=== PATIENT | male | born 1995 | race African-American/Black ===

== ENCOUNTER 2016-11-19 20:36 | Emergency (ER) | payer OTHER ==
[~2016-11-19] VITALS: Ht 180.3 cm; Wt 69.2 kg
[2016-11-19 20:38] VITALS: Ht 180.3 cm; Wt 69.2 kg
--- NOTE | 2016-11-19 20:57 | ERPDOC ---
Departure Disposition Decision Date: November 19, 2016 Disposition Decision Time: 22:43 Disposition: 01 DISCHARGED HOME, SELF-CARE Impression Impression Impression: Primary Impression: Viral gastroenteritis Additional Impression: Dehydration Severity: Moderate Condition: Improved Seen By: Physician only Patient Instructions: Gastroenteritis (ED) Problems/Meds/Labs Reviewed?: Yes Medications reviewed and manag: Yes Additional Instructions: Take Compazine 10 mg one tablet 3 times daily for the next 2 days, then as needed for nausea or abdominal cramps Drink 2-3 quarts of fluid daily for the next 3 days, then returned here normal intake Return to ER or see your normal physician/referral physician as needed if symptoms do not improve Follow up care ordered?: Yes Mental Status: Alert Scripts Prochlorperazine Maleate (Compazine) 10 Mg Tablet 10 MG PO QID, #30 TAB 0 Refills Prov: MARIANGEL MARKHAM MD 11/19/16 HPI - Abdominal Pain General Chief Complaint: Nausea,Vomiting,Diarrhea Stated Complaint: VOMITING Time Seen by Provider: 20:42 Source: patient History/Exam Limitations: no limitations HPI - Abdominal Pain Initial Comments Patient reports 10-12 days of persistent periodic daily vomiting with epigastric pain, generalized cramping, and diarrhea that was present initially but has now resolved. Patient also notes a feeling of fevers and chills several times each day. Patient has not tried any medications, he has tried diet modification, avoiding fatty foods, but has noticed that even when he avoids fried or fatty foods, he persistently vomits up any heavy proteins, or milk products. Patient has no severe past medical history, is an athlete at the local college, and specifically denies any recreational drugs. Patient does have mild asthma controlled with Singulair alone. Occurred At: home Onset: Rapid Quality: cramping Location: epigastric Radiation: chest Activities at Onset: none Modifying Factors: WORSE WITH: eating Associated Symptoms: nausea/vomiting, DENIES: back pain, chest pain, diaphoresis, fatigue, fever/chills, headache, heartburn, rash, shortness of breath, swelling/mass in abdomen, syncope, weakness Hx of Similar Symptoms: No Allergies: Coded Allergies: No Known Allergies (Unverified , 11/19/16) Past History Past Medical History Respiratory: asthma Surgical History Denies Surgeries Social History Smoking Status: Never smoker Does patient use chewing tobac: No Second Hand Exposure: No Substance Use Type: does not use Alcohol Intake: none Record Review Pertinent history updated: Yes Review of Systems Constitutional Constitutional: chills, fatigue, fever, DENIES: appetite decrease, appetite increase, dizziness, weakness ENMT Ears: DENIES: pain Hearing: DENIES: hearing loss, tinnitus Balance: DENIES: vertigo Mouth/Throat: DENIES: change in swallowing, change in voice, hoarsness, painful swallowing, sore throat Cardiovascular Cardiac: DENIES: chest pain, dyspnea on exertion Rhythm/Rate: DENIES: irregular beat, palpitations, tachycardia Vascular: DENIES: pedal edema Pulmonary Respiratory: DENIES: cough, dyspnea, pleuritic chest pain GI Upper Abdomen: nausea, pain, vomiting, DENIES: dysphagia, food intolerances, heartburn/indigestion, hematemesis Lower Abdomen: diarrhea, DENIES: blood in stool, job-colored stools, constipation, melena, pain, painful BM General: DENIES: burning, dysuria, frequency, pain, urgency Musculoskeletal General: DENIES: cramps, joint pain, joint swelling, pain, weakness Integumentary Skin: DENIES: rash, sores Neurological General: headache Psychiatric Psychiatric: DENIES: anxiety, depression, nervousness Physical Exam General General Nourishment: well nourished, well developed, appears stated age, no acute distress, thin General Body Habitus: well groomed Vitals and Pain First Documented Vital Signs Date Time Temp Pulse Resp B/P Pulse Ox O2 Delivery O2 Flow Rate FiO2 11/19/16 20:38 97.8 63 16 127/73 98 Room Air Weight: Kilograms: 69.200 Height (feet): 5 Height (inches): 11.00 Triage Pain Scale: RN VS reviewed by Provider: Yes Normal Exams: Head: Normocephalic w/o trauma Eyes: Pupils are PERRLA w/ EOMI, No scleral icterus, irritation, or foreign bodies noted ENMT: No facial trauma, nasal exudates, pharyngeal erythema, or exudates are noted Neck: Full range of motion, without adenopathy, JVD, bruits or thyromegaly Chest/Resp: Clear all price, with good airflow, and symmetry bilaterally CV: Regular rate and rhythm, without murmur or gallop, Pulses 2+ all extremities, capillary refill, <2 seconds all ext., no pedal edema noted Lymphatic: No lymphadenopathy, or lymphedema noted Musculoskeletal: No tenderness, or deformity noted, good range of motion, all extremities Integumentary: No rashes, hives, or bruising noted, hair and nails, without abnormality Neurologic: Patient is alert, and oriented, cranial nerves, motor/sensory/ cerebellar, exams w/o gross deficits, to observation Psychiatric: Patient exhibits, appropriate attention, emotion and affect Abdomen (brief) Abdominal Brief: FOUND: bowel normo active x4, soft, tender (minimal epigastric tenderness), NOT FOUND: distended, hepatosplenomegaly, pulsatile mass Progress Results/Orders Orders Procedure Category Date Status Time Iv Lock (Ed Only) EDM 11/19/16 Transmitted 20:47 Cbc W/Auto LAB 11/19/16 Complete Diff-Reflex Manual Cmp - Comprehensive LAB 11/19/16 Complete Metabolic Lipase LAB 11/19/16 Complete Ketorolac (Toradol) PHA 11/19/16 Complete 21:00 Normal Saline (Normal PHA 11/19/16 Complete Saline Iv) 21:00 Prochlorperazine PHA 11/19/16 Complete (Compazine) 21:00 Lab Results Laboratory Tests Test 11/19/16 20:58 White Blood Count 7.0T/MM3 Red Blood Count 4.78M/MM3 Hemoglobin 12.9GM/DL Hematocrit 40.2% Mean Corpuscular Volume 84.1UM3 Mean Corpuscular Hemoglobin 27.0UUG Mean Corpuscular Hemoglobin Concent 32.1GM/DL RDW Standard Deviation 39.3FL Platelet Count 274T/MM3 Mean Platelet Volume 10.4UM3 Immature Granulocyte % (Auto) 0.1% Neutrophils (%) (Auto) 48.5% Lymphocytes (%) (Auto) 34.8% Monocytes (%) (Auto) 12.1% Eosinophils (%) (Auto) 3.8% Basophils (%) (Auto) 0.7% Absolute Immature Granulocyte (auto 0.01T/MM3 Absolute Neutrophils (auto) 3.4T/MM3 Absolute Lymphocytes (auto) 2.5T/MM3 Absolute Monocytes (auto) 0.9T/MM3 Absolute Eosinophils (auto) 0.3T/MM3 Absolute Basophils (auto) 0.1T/MM3 Turbidity < 20 Sodium Level 141MEQ/L Potassium Level 4.1MEQ/L Chloride Level 100MEQ/L Carbon Dioxide Level 29MEQ/L Anion Gap 12MEQ/L Blood Urea Nitrogen 14.0MG/DL Creatinine 1.3MG/DL Glomerular Filtration Rate Calc 70 BUN/Creatinine Ratio 11RATIO Glucose Level 91MG/DL Calculated Osmolality 272MOSM/KG Calcium Level 9.5MG/DL Total Bilirubin 0.70MG/DL Icterus Index < 2 Aspartate Amino Transf (AST/SGOT) 21U/L Alanine Aminotransferase (ALT/SGPT) 36U/L Alkaline Phosphatase 78U/L Total Protein 7.6G/DL Albumin 4.4G/DL Globulin 3.2G/DL Albumin/Globulin Ratio 1.4RATIO Lipase 57U/L Chemistry Specimen Hemolysis < 15 Medications Current ED Medications Ondansetron HCl (Zofran) 4 mg O ONCE IV ; Start 11/19/16 at 21:00; Stop 11/19/16 at 21:01; Status Cancel Ketorolac Tromethamine 30 mg 30 mg O ONCE IV Last administered on 11/19/16 21: 07; Start 11/19/16 at 21:00; Stop 11/19/16 at 21:01; Status DC Sodium Chloride (Normal Saline IV) 1,000 ml @ 0 mls/hr Q0M ONCE IV Last administered on 11/19/16 21:06; Start 11/19/16 at 21:00; Stop 11/19/16 at 21:01; Status DC Prochlorperazine Edisylate (Compazine) 10 mg O ONCE IV Last administered on 21:08; Start 11/19/16 at 21:00; Stop 11/19/16 at 21:01; Status DC Progress Progress Patient given Toradol, Compazine, 1 L normal saline IV fluid bolus - To significant relief. Patient did have a slight feeling of dizziness after Compazine, but this resolved CBC - n CMP/L - n UA - n MARIANGEL MARKHAM MD November 19, 2016 20:57
[2016-11-19] MEDS ORDERED: PROCHLORPERAZINE 10mg/2ml INJECTION IV ONE (21:00)
[2016-11-19] MEDS ORDERED: KETOROLAC 30mg/ml INJECTION IV ONE (21:00)
[2016-11-19] MEDS ORDERED: ONDANSETRON 4mg/2ml INJECTION IV ONE (21:00)
[2016-11-19] MEDS ORDERED: NORMAL SALINE 1,000 ML IV ONE (21:00)
[2016-11-19] MEDS ORDERED: MONT10TA22 PO (21:15)
[2016-11-19 21:21] LABS: ALBUMIN 4.4 G/DL (3.5-5.0); ALBUMIN/GLOBULIN RATIO 1.4 RATIO (1.1-2.2); ALKALINE PHOSPHATASE 78 U/L (38-126); ALT (SGPT) 36 U/L (21-72); ANION GAP 12 MEQ/L (5-15); AST (SGOT) 21 U/L (17-59); BUN/CREATININE RATIO 11 RATIO (6-26); CALCIUM 9.5 MG/DL (8.4-10.2); CHLORIDE 100 MEQ/L (98-107); CO2 - CARBON DIOXIDE 29 MEQ/L (22-30); CREATININE 1.3 MG/DL (0.8-1.5); GLOMERULAR FILTRATION RATE 70; GLUCOSE 91 MG/DL (75-110); POTASSIUM 4.1 MEQ/L (3.6-5); SODIUM 141 MEQ/L (134-144); TOTAL PROTEIN 7.6 G/DL (6.3-8.2)
[2016-11-19 21:26] LABS: BASOPHILS # (AUTO) 0.1 T/MM3 (0-0.2); BASOPHILS % (AUTO) 0.7 % (0-2); EOSINOPHILS # (AUTO) 0.3 T/MM3 (0-0.5); EOSINOPHILS % (AUTO) 3.8 % (0-4); HCT - HEMATOCRIT 40.2 % (41-53); HGB - HEMOGLOBIN 12.9 GM/DL (13.5-17.5); IMMATURE GRANULOCYTE # (AUTO) 0.01 T/MM3 (0.00-0.03); IMMATURE GRANULOCYTE % (AUTO) 0.1 % (0.0-0.5); LYMPHOCYTES # (AUTO) 2.5 T/MM3 (1-4.8); LYMPHOCYTES % (AUTO) 34.8 % (23-45); MEAN CORPUSCULAR HGB CONC(MCHC 32.1 GM/DL (31-37); MEAN CORPUSCULAR VOLUME 84.1 UM3 (80-100); MEAN PLATELET VOLUME 10.4 UM3 (9.4-12.4); MONOCYTES # (AUTO) 0.9 T/MM3 (0-0.8); MONOCYTES % (AUTO) 12.1 % (0-9.0); NEUTROPHILS #(AUTO)-ABSOLUTE 3.4 T/MM3 (1.8-7.7); NEUTROPHILS % (AUTO) 48.5 % (33-66); RED BLOOD COUNT 4.78 M/MM3 (4.50-5.90)
[2016-11-19 21:40] LABS: LIPASE 57 U/L (23-300)
--- NOTE | 2016-11-19 21:59 | NUR ---
STATUS PATIENT STATED THAT HE WAS FEELING DIZZY JUST LYING IN BED. NOTIFIED DR MARKHAM. GAVE PATIENT WARM BLANKER PER REQUEST.
[2016-11-19] MEDS ORDERED: PROC-14 PO (22:44)
[2016-11-19] MEDS ORDERED: PROCHLORPERAZINE 10MG (PrePack) SENT HOME ONE (22:45)
[2016-11-19 23:00] VITALS: BP 126/88; PULSE 82; RESP 16; TEMP 97.8; O2SAT 99
== END 2016-11-19 23:00 | disposition home or self-care (01) ==
LOC: ED 20:36
DX: A08.4 Viral intestinal infection, unspecified (principal); E86.0 Dehydration
CPT/HCPCS: 36415; 80053; 83690; 85025; 96361; 96374; 96375; 99284; J0780; J1885; J7030